=== PATIENT | male | born 1985 | race Caucasian/White ===

== ENCOUNTER 2016-07-31 17:51 | Emergency (ER) | payer SELFPAY ==
--- NOTE | 2016-07-31 18:25 | ER Document Report ---
ED Medical Screen (RME) - General Stated Complaint: SKIN SORE ON RIGHT SHOULDER Time seen by provider: 18:21 Mode of Arrival: Ambulatory Information source: Patient Notes: Patient reports that he has a lesion to his right shoulder that has been there for quite a while. Today he was having some pain and bleeding from it. Concerned he may have skin cancer. I have greeted and performed a rapid initial assessment of this patient. A comprehensive ED assessment and evaluation of the patient, analysis of test results and completion of the medical decision making process will be conducted by additional ED providers. TRAVEL OUTSIDE OF THE [place] IN LAST 30 DAYS: No - Related Data Allergies/Adverse Reactions: No Known Allergies Allergy (Verified 01/28/15 09:20) Past Medical History - Immunizations Hx Diphtheria, Pertussis, Tetanus Vaccination: Yes Physical Exam - Vital signs Vitals: Temp Pulse Resp BP Pulse Ox 98.3 F 103 H 20 109/67 98 07/31/16 18:15 07/31/16 18:15 07/31/16 18:15 07/31/16 18:15 07/31/16 18:15 - Skin Notes: 1 inch tender skin lesion to right shoulder. Area is scabbed over. Course - Vital Signs Vital signs: Temp Pulse Resp BP Pulse Ox 98.3 F 103 H 20 109/67 98 07/31/16 18:15 07/31/16 18:15 07/31/16 18:15 07/31/16 18:15 07/31/16 18:15
--- NOTE | 2016-07-31 20:02 | ER Document Report ---
ED Skin Rash/Insect Bite/Abscs - General Chief Complaint: Skin Problem Stated Complaint: SKIN SORE ON RIGHT SHOULDER Mode of Arrival: Ambulatory Notes: Patient says he's had a lesion on upper right back/shoulder region for a couple of years. He says that it has bled occasionally. He also thinks that there was pus in the lesion a couple of weeks ago, but not currently. Does not recall any injury to the area. Is concerned he may have a skin cancer. Past history is unremarkable. TRAVEL OUTSIDE OF THE [place] IN LAST 30 DAYS: No - Related Data Allergies/Adverse Reactions: No Known Allergies Allergy (Verified 07/31/16 18:22) Past Medical History - General Information source: Patient - Social History Smoking Status: Current Every Day Smoker Cigarette use (# per day): Yes Chew tobacco use (# tins/day): No Frequency of alcohol use: None Drug Abuse: None Family History: Reviewed & Not Pertinent Patient has suicidal ideation: No Patient has homicidal ideation: No Surgical Hx: Negative - Immunizations Hx Diphtheria, Pertussis, Tetanus Vaccination: Yes Review of Systems - Review of Systems Constitutional: denies: Fever Physical Exam - Vital signs Vitals: Temp Pulse Resp BP Pulse Ox 98.3 F 103 H 20 109/67 98 07/31/16 18:15 07/31/16 18:15 07/31/16 18:15 07/31/16 18:15 07/31/16 18:15 Interpretation: Normal - Skin Skin Temperature: Warm Notes: Patient has a chronic appearing lesion of the right upper back/shoulder region. It's about 2-3 cm length and 2 cm with, raised, somewhat dark in color. Does not appear to have any current bleeding. No fluctuance felt. Lesion probably represents a basal cell carcinoma. Course - Re-evaluation Re-evalutation: 07/31/16 20:41 Advised the patient this is not a procedure performed in the emergency department, i.e., removal of skin lesions. I recommended that he make an appointment to see a local surgery and as soon as possible to have this lesion removed. I provided him with the contact information for the local surgery group and also one of the individuals surgeons. I encouraged him to call tomorrow and schedule an appointment for evaluation and removal of this lesion. I made him aware that it very likely could be a cancerous lesion. - Vital Signs Vital signs: Temp Pulse Resp BP Pulse Ox 98.3 F 99 20 121/73 97 07/31/16 20:10 07/31/16 20:10 07/31/16 18:15 07/31/16 20:10 07/31/16 20:10 Discharge - Discharge Clinical Impression: Skin lesion Condition: Stable Disposition: HOME, SELF-CARE Additional Instructions: Skin lesion: You have a lesion on your right shoulder that looks like it could be a basal cell carcinoma. It should be removed promptly. We do not perform these procedures in the emergency department. I am providing you with contact information for the local surgical group who can remove this skin lesion in an office procedure. Contact the surgical office and make an appointment for them to see you as soon as possible to get this lesion removed. FOLLOW-UP CARE: If you have been referred to a physician for follow-up care, call the physician s office for an appointment as you were instructed or within the next two days. If you experience worsening or a significant change in your symptoms, notify the physician immediately or return to the Emergency Department at any time for re-evaluation. Forms: Return to Work Referrals: [facility] [Provider Group] - Follow up in 1 week ROSALBA GEORGES MD [ACTIVE STAFF] - Follow up as needed
[2016-07-31 20:12] VITALS: BP 121/73
== END 2016-07-31 20:12 | disposition home or self-care (01) ==
LOC: ER 17:51
DX: L98.9 Disorder of the skin and subcutaneous tissue, unspecified (principal); F17.210 Nicotine dependence, cigarettes, uncomplicated
CPT/HCPCS: 99283

== ENCOUNTER 2016-10-13 12:10 | Emergency (ER) | payer SELFPAY ==
--- NOTE | 2016-10-13 12:40 | ER Document Report ---
ED Skin Rash/Insect Bite/Abscs - General Chief Complaint: Lip Swelling Stated Complaint: LIP SWELLING Time Seen by Provider: 10/13/16 12:22 Mode of Arrival: Ambulatory Information source: Patient Notes: 31-year-old male presents to ED for possible abscess to the lower lip. Patient states he had what looked like a little pimple right below his lip and he popped it and now is entire lower lip is swelling, firm, and tender. TRAVEL OUTSIDE OF THE [place] IN LAST 30 DAYS: No - HPI Patient complains to provider of: Tender/swollen area - Lower lip Onset: Other - 2 days Onset/Duration: Gradual Quality of pain: Pressure, Sharp Severity: Moderate Pain Level: 4 Skin Character: Abscess Skin Temperature: Warm Quality of rash: Painful Identify cause: No Exacerbated by: Denies Relieved by: Denies Similar symptoms previously: No Recently seen / treated by doctor: No - Related Data Allergies/Adverse Reactions: No Known Allergies Allergy (Verified 10/13/16 12:15) Past Medical History - General Information source: Patient - Social History Smoking Status: Current Every Day Smoker Cigarette use (# per day): Yes - half pack a day Chew tobacco use (# tins/day): No Smoking Education Provided: Yes - less than 2 minutes Frequency of alcohol use: None Drug Abuse: None Occupation: [employer] Lives with: Spouse/Significant other Family History: Arthritis, DM, Malignancy Patient has suicidal ideation: No Patient has homicidal ideation: No - Past Medical History Cardiac Medical History: Reports: None Pulmonary Medical History: Reports: None EENT Medical History: Reports: None Neurological Medical History: Reports: None Endocrine Medical History: Reports: None Malignancy Medical History: Reports Hx Skin Cancer GI Medical History: Reports: None Musculoskeltal Medical History: Reports None Skin Medical History: Reports None Psychiatric Medical History: Reports: None Traumatic Medical History: Reports: None Infectious Medical History: Reports: None Surgical Hx: Negative Past Surgical History: Reports: None - Immunizations Immunizations up to date: Yes Hx Diphtheria, Pertussis, Tetanus Vaccination: Yes Review of Systems - Review of Systems Constitutional: No symptoms reported EENT: Other - Swollen painful firm bottom lip Cardiovascular: No symptoms reported Respiratory: No symptoms reported Gastrointestinal: No symptoms reported Genitourinary: No symptoms reported Male Genitourinary: No symptoms reported Musculoskeletal: No symptoms reported Skin: Other - Possible abscess bottom lip Hematologic/Lymphatic: No symptoms reported Neurological/Psychological: No symptoms reported -: Yes All other systems reviewed and negative Physical Exam - Vital signs Vitals: Temp Pulse Resp BP Pulse Ox 98.7 F 111 H 18 111/73 99 10/13/16 12:16 10/13/16 12:16 10/13/16 12:16 10/13/16 12:16 10/13/16 12:16 Interpretation: Normal - General General appearance: Appears well, Alert - HEENT Head: Normocephalic, Atraumatic Eyes: Normal Pupils: PERRL Ears: Normal External canal: Normal Tympanic membrane: Normal Nasal: Normal Mouth/Lips: Other - Bottom lip firm swollen tender red multiple sores just below the bottom of patient says he popped one of this and that's why his lip became firm and painful Pharynx: Normal Neck: Normal - Respiratory Respiratory status: No respiratory distress Chest status: Nontender Breath sounds: Normal Chest palpation: Normal - Cardiovascular Rhythm: Regular Heart sounds: Normal auscultation Murmur: No - Abdominal Inspection: Normal Distension: No distension Bowel sounds: Normal Tenderness: Nontender Organomegaly: No organomegaly - Back Back: Normal, Nontender - Extremities General upper extremity: Normal inspection, Nontender, Normal color, Normal ROM , Normal temperature General lower extremity: Normal inspection, Nontender, Normal color, Normal ROM , Normal temperature, Normal weight bearing. No: Deborah's sign - Neurological Neuro grossly intact: Yes Cognition: Normal Orientation: AAOx4 [place] Coma Scale Eye Opening: Spontaneous [place] Coma Scale Verbal: Oriented [place] Coma Scale Motor: Obeys Commands [place] Coma Scale Total: 15 Speech: Normal Motor strength normal: LUE, RUE, LLE, RLE Sensory: Normal - Psychological Associated symptoms: Normal affect, Normal mood - Skin Skin Temperature: Warm Skin Moisture: Dry Skin Color: Normal Course - Vital Signs Vital signs: Temp Pulse Resp BP Pulse Ox 98.7 F 90 19 122/95 H 100 10/13/16 12:16 10/13/16 14:00 10/13/16 14:00 10/13/16 14:00 10/13/16 14:00 Procedures - Incision and Drainage Left lower lip Time completed: 13:00 Type: Multiple Anesthetic type: 1% Lidocaine mL's of anesthetic: 3 Blade size: 11 I&D procedure: Other Incision Method: Incision made by scalpel Amount/type of drainage: moderate amount purulent drainage Discharge - Discharge Clinical Impression: abscess bottom lip Condition: Stable Disposition: HOME, SELF-CARE Instructions: Family Physicians / Practices Additional Instructions: ABSCESS: You have an abscess (boil). This a pus-forming infection, usually due to staph. Some boils may be left to drain on their own, but most require lancing. From the time the tender lump first appears, it may be three or four days before the abscess is ready to denis. Local heat and rest help at this stage of treatment. An antibiotic may prevent spread of the infection. Once the abscess is opened, packing may be placed into it. This is done so pus is not sealed inside by premature closure of the cavity. The packing will be removed at your follow-up visit or you may be advised to remove it yourself at home. Sometimes this packing must be replaced a few times during healing. The wound will heal with surprisingly little scar. Depending on the size and location of an abscess, healing can take one to four weeks. You may shower and wash the area around the incision site two or three times a day. Antibiotics may be prescribed, but are usually not necessary after an abscess has been drained. If you develop fever, chills, worsening pain, or increasing swelling in the area, call the doctor or return immediately. POST INCISION AND DRAINAGE: You have had an incision made to allow drainage of an abscess. The incision must remain open so that pus and debris can drain from the wound. If the abscess cavity is large, packing is placed. This keeps the tissues from collapsing and trapping pus inside, while the body shrinks the cavity. The packing may need to be replaced every day or two. The physician will instruct you on the packing. Keep a bulky dressing over the area. Replace it if it becomes saturated with blood or pus. Do not disturb the packing (if present). You may shower and cleanse the area with gentle soap and warm water two or three times a day. Local warmth may be soothing, and may promote faster healing. Return if you develop high fever or chills, or if you note spreading redness, increasing swelling, or increasing tenderness. ORAL NARCOTIC MEDICATION: You have been given a prescription for pain control. This medication is a narcotic. It's best taken with food, as nausea can result if taken on an empty stomach. Don't operate machinery or drive within six hours of taking this medication. Do not combine this medicine with alcohol, or with any medication which can cause sedation (such as cold tablets or sleeping pills) unless you get permission from the physician. Narcotics tend to cause constipation. If possible, drink plenty of fluids and eat a diet high in fiber and fruits. CEPHALEXIN: The antibiotic you've been prescribed is a member of the cephalosporin class. This type of antibiotic covers a wide variety of infections, including those of the skin, lungs, and urinary tract. It's useful for staph infections. This antibiotic is slightly similar to the penicillin family. In rare cases , a person who is allergic to penicillin will also be allergic to this medication. If you have had a severe allergic reaction to penicillin, and have not taken this antibiotic since that time, notify your doctor. Antibiotics which cover many germs ("broad spectrum" antibiotics) are more likely to cause diarrhea or "yeast" infections. Women prone to vaginal yeast problems may suffer an attack after taking this antibiotic. In infants, oral thrush (white spots "stuck" on the cheek) or yeast diaper rash may result. See your doctor if these problems occur. Call at once if you develop itching, hives , shortness of breath, or lightheadedness. TRIMETHOPRIM-SULFA: You have been given a prescription for trimethoprim-sulfa (TMS, Septra, Bactrim). This is a combination antibiotic of the sulfa class, often used for urinary tract infections, middle ear infections, bronchitis, shigella intestinal infection, and Pneumocystis pneumonia. TMS is usually well-tolerated. Occasional side effects include nausea and decreased appetite. Septra is not recommended for infants less than two months of age. Do not take this medication if you have experienced severe side effects or allergy to sulfa medicine. You should stop this medicine at once and contact your physician if you develop any rash, joint pain, shortness of breath, bruising, or jaundice ( yellow color in the skin), or if you develop any other new or unusual symptoms. FOLLOW-UP CARE: Most simple abscesses will not require a follow up visit. If you had packing placed in the abscess, remove it as instructed by the physician. If you have been referred to a physician for follow-up care, call the physicians office for an appointment as you were instructed or within the next two days. If you experience worsening or a significant change in your symptoms, return to the Emergency Department at any time for re-evaluation. Please complete the patient's satisfaction survey if you get one and return. If you do not receive a survey you can go to [facility] website [email or web address] and place your comments about your very good care. Thank you very much. It was a pleasure be in your medical provider today. Prescriptions: Hydrocodone/Acetaminophen [[place] 5-325 mg Tablet] 1 tab PO Q6HP PRN #14 tablet PRN Reason: Cephalexin Monohydrate [Keflex 500 mg Capsule] 500 mg PO QID #20 capsule Sulfamethoxazole/Trimethoprim [Bactrim Ds Tablet] 1 each PO BID #20 tablet Forms: Smoking Cessation Education, Return to Work
[2016-10-13] MEDS ORDERED: LIDOCAINE 1% INJ-PF (10 MG/ML) 30 ML SDV INJ ONE (12:52)
[2016-10-13] MEDS ORDERED: CEPHALEXIN 500 MG CAPSULE PO ONE (13:42)
[2016-10-13] MEDS ORDERED: HYDROCODONE/ACETAMINOPHEN 5-325 MG TABLET PO ONE (13:42)
[2016-10-13] MEDS ORDERED: SULFAMETHOXAZOLE/TRIMETHOPRIM 800-160 MG TABLET PO ONE (13:42)
[2016-10-13 14:03] VITALS: BP 122/95
== END 2016-10-13 13:58 | disposition home or self-care (01) ==
LOC: ER 12:10
PROC: 0H91XZZ Drainage of Face Skin, External Approach (ICD-10-PCS; principal; 2016-10-13)
DX: K13.0 Diseases of lips (principal); F17.210 Nicotine dependence, cigarettes, uncomplicated; Z71.6 Tobacco abuse counseling; Z85.828 Personal history of other malignant neoplasm of skin
CPT/HCPCS: 99283; 87070; 87205; 87075; 87077; 87186; 10060; J3490; A6266